=== PATIENT | male | born 1980 | race African-American/Black ===

== ENCOUNTER 2018-05-21 00:04 | Emergency (ER) | payer OTHER ==
[~2018-05-21] VITALS: Ht 167.6 cm; Wt 79.5 kg
[2018-05-21 00:08] VITALS: Ht 167.6 cm; Wt 79.5 kg
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
[2018-05-21] MEDS ORDERED: DIPHTH/TET/ACEL PERTUSS (ADULT) 0.5 ML VIAL IM* ONE (01:30)
[2018-05-21] MEDS ORDERED: HYDROCODONE/APAP (10/325) TAB PO ONE (01:30)
[2018-05-21] MEDS ORDERED: CEFAZOLIN 1 GM INJ IM ONE (03:30)
[2018-05-21] MEDS ORDERED: LIDOCAINE 1%/EPI (MDV) 50 ML INJ INJ ONE (05:00)
[2018-05-21] MEDS ORDERED: CEPH-443 PO (05:22)
[2018-05-21] MEDS ORDERED: SULF1TAB31 PO (05:22)
[2018-05-21] MEDS ORDERED: HYDR-3980 PO (05:23)
[2018-05-21] MEDS ORDERED: IBUP800T48 PO (05:23)
[2018-05-21] MEDS ORDERED: BACITRACIN 0.9 GM OINT TOP ONE (05:30)
[2018-05-21 05:58] VITALS: BP 131/84; PULSE 102; RESP 19
== END 2018-05-21 06:05 | disposition home or self-care (01) ==
LOC: FTE 00:04
DX: S81.011A Laceration without foreign body, right knee, initial encounter (principal); S01.21XA Laceration without foreign body of nose, initial encounter; S02.2XXB Fracture of nasal bones, initial encounter for open fracture; V18.4XXA Pedal cycle driver injured in noncollision transport accident in traffic accident, initial encounter; Y92.410 Unspecified street and highway as the place of occurrence of the external cause; Z23 Encounter for immunization
CPT/HCPCS: 12004; 12011; 70450; 70486; 72125; 73562; 73590; 90715; J0690; Z7610; 90471; 96372